=== PATIENT | female | born 1995 | race American Indian/Alaskan Native ===

== ENCOUNTER 2017-03-06 17:14 | Emergency (ER) | payer SELFPAY ==
[2017-03-06] MEDS ORDERED: NACL 0.9% 1000 ML 1,000 ML IV ONE ×2 (17:46→20:40)
[2017-03-06 18:05] LABS: Urine Drugs of Abuse Note Disclamer
[2017-03-06 18:20] LABS: Hematocrit 38.8 % (30.3-42.9); Hemoglobin 12.4 gm/dl (10.1-14.3); Mean Corpuscular HGB Conc 32 % (30-34); Mean Corpuscular Hemoglobin 29 pg (28-32); Mean Corpuscular Volume 92 fl (79-97); Platelet Count 186 K/mm3 (140-440); Red Blood Count 4.22 M/mm3 (3.65-5.03); Red Cell Distribution Width 13.5 % (13.2-15.2); White Blood Count 16.2 K/mm3 (4.5-11.0)
[2017-03-06] MEDS ORDERED: TYLENOL PO ONE (18:20)
--- NOTE | 2017-03-06 18:23 | Emergency Department Report ---
ED General Adult HPI - General Chief complaint: Nausea/Vomiting/Diarrhea Stated complaint: FEVER Time Seen by Provider: 03/06/17 18:09 Source: patient, EMS Mode of arrival: Stretcher Limitations: No Limitations - History of Present Illness Initial comments: 21-year-old female here for evaluation of multiple complaints. She's had nausea and vomiting for several days off intermittent low-grade temperature with body aches. She denies any headache she denies any stiff neck. She has had some intermittent joint pain but no swollen joints. No headache no stiff neck no rash. She is here for evaluation of generalized malaise with generalized weakness with body aches some intermittent nausea and vomiting. She denied any abdominal pain denied any diarrhea. Family states on the way over here they think she had a blackout spell that L think she did not have had seizure activity but they couldn't wake her up she is here for further evaluation. arrives a and o x 3 no acute distress, no head injury no stiff neck , nonfocal neuro exam, nsr w/o acute st changes on ekg, having int fever and n/ v w/ malaizse , no vag c/o. -: hour(s), days(s) Radiation: non-radiation Severity scale (0 -10): 0 Worsens with: none Associated Symptoms: fever/chills, malaise, nausea/vomiting, weakness. denies: confusion, chest pain, cough, diaphoresis, headaches, loss of appetite, rash, seizure, shortness of breath - Related Data Previous Rx's Medication Instructions Recorded Last Taken Type Cephalexin [Keflex] 500 mg PO Q8HR #30 cap 03/06/17 Unknown Rx Ondansetron [Zofran Odt] 4 mg PO Q8HR PRN #10 tab.rapdis 03/06/17 Unknown Rx Allergies Allergy/AdvReac Type Severity Reaction Status Date / Time Sulfa (Sulfonamide AdvReac Anaphylaxis Verified 03/06/17 18:14 Antibiotics) ED Review of Systems ROS: Stated complaint: FEVER Other details as noted in HPI Comment: All other systems reviewed and negative Constitutional: fever, malaise. denies: weakness Eyes: denies: eye pain ENT: denies: ear pain, throat pain Respiratory: denies: shortness of breath, SOB with exertion, SOB at rest, stridor, wheezing Cardiovascular: other (blackout spell after vomiting. Likely vasovagal no chest pain no headache no stiff neck no seizure activity). denies: chest pain, palpitations, dyspnea on exertion, orthopnea Gastrointestinal: nausea, vomiting. denies: diarrhea, constipation, hematemesis , melena, hematochezia Genitourinary: urgency. denies: discharge, abnormal menses, dyspareunia Skin: denies: rash Neurological: denies: headache, weakness, numbness, paresthesias, confusion, abnormal gait, vertigo Psychiatric: denies: homicidal thoughts, suicidal thoughts ED Past Medical Hx - Past Medical History Previous Medical History?: No - Surgical History Past Surgical History?: No - Social History Smoking Status: Never Smoker Substance Use Type: Alcohol - Medications Home Medications: Home Medications Medication Instructions Recorded Confirmed Last Taken Type Cephalexin [Keflex] 500 mg PO Q8HR #30 cap 03/06/17 Unknown Rx Ondansetron [Zofran Odt] 4 mg PO Q8HR PRN #10 tab.rapdis 03/06/17 Unknown Rx ED Physical Exam - General Limitations: No Limitations General appearance: alert, in no apparent distress - Head Head exam: Present: atraumatic, normocephalic - Eye Eye exam: Present: normal appearance, PERRL, EOMI - ENT ENT exam: Present: normal exam, normal orophraynx, mucous membranes dry - Neck Neck exam: Present: normal inspection. Absent: tenderness, meningismus, lymphadenopathy, thyromegaly - Respiratory Respiratory exam: Present: normal lung sounds bilaterally. Absent: respiratory distress, wheezes, rales, rhonchi, stridor, chest wall tenderness, accessory muscle use, decreased breath sounds, prolonged expiratory - Cardiovascular Cardiovascular Exam: Present: regular rate, normal rhythm, normal heart sounds. Absent: rubs, gallop - GI/Abdominal GI/Abdominal exam: Present: soft. Absent: distended, tenderness, guarding, rebound, rigid, mass, bruit, pulsatile mass - Extremities Exam Extremities exam: Present: normal inspection. Absent: tenderness, pedal edema, joint swelling, calf tenderness - Back Exam Back exam: Present: normal inspection. Absent: tenderness, muscle spasm, paraspinal tenderness, vertebral tenderness - Neurological Exam Neurological exam: Present: alert, oriented X3, CN II-XII intact, normal gait. Absent: motor sensory deficit ED Course Vital Signs 03/06/17 03/06/17 03/06/17 17:29 17:30 17:38 Temperature 100.2 F H Pulse Rate 126 H 111 H 116 H Respiratory 26 H 24 20 Rate Blood Pressure 108/69 108/69 Blood Pressure [Left] O2 Sat by Pulse 100 100 Oximetry 03/06/17 03/06/17 03/06/17 17:40 17:45 17:50 Temperature 100.2 F H Pulse Rate 121 H 116 H 112 H Respiratory 22 20 18 Rate Blood Pressure 108/71 108/71 Blood Pressure 108/69 [Left] O2 Sat by Pulse 100 100 100 Oximetry 03/06/17 03/06/17 03/06/17 18:00 18:10 18:20 Temperature Pulse Rate 117 H 117 H 116 H Respiratory 20 18 21 Rate Blood Pressure 110/61 110/61 110/61 Blood Pressure [Left] O2 Sat by Pulse 85 100 100 Oximetry 03/06/17 03/06/17 03/06/17 18:30 18:37 18:42 Temperature Pulse Rate 118 H 124 H Respiratory 23 16 38 H Rate Blood Pressure 129/73 129/73 Blood Pressure [Left] O2 Sat by Pulse 96 99 100 Oximetry 03/06/17 03/06/17 03/06/17 18:50 19:00 19:10 Temperature Pulse Rate 117 H 117 H 121 H Respiratory 15 23 21 Rate Blood Pressure 129/73 123/67 123/67 Blood Pressure [Left] O2 Sat by Pulse 100 99 99 Oximetry 03/06/17 03/06/17 03/06/17 19:20 19:30 19:40 Temperature 102.5 F H Pulse Rate 112 H 121 H Respiratory 24 26 H Rate Blood Pressure 123/67 105/58 Blood Pressure [Left] O2 Sat by Pulse 100 100 Oximetry - Reevaluation(s) Reevaluation #1: 03/06/17 22:16 Patient was given IV fluids she was given antipyretics. EKG and head CT were obtained given the fact that she had a possible syncopal episode CT head was process EKG showed a heart rate of 101-[address]-T changes and was a sinus rhythm ED Medical Decision Making - Lab Data Result diagrams: 03/06/17 18:10 03/06/17 18:10 - EKG Data -: EKG Interpreted by Me EKG shows normal: sinus rhythm, ST-T waves (no acute ischemic change) - EKG Data When compared to previous EKG there are: previous EKG unavailable - Radiology Data Radiology results: report reviewed - Medical Decision Making Results show pyelonephritis she is WBC high power field elevated. Also has elevated WBC. IV fluids and antibiotics given. Tolerating by mouth. No acute abd at this time. Influenza AB-. Repeat vital signs are stable patient still for outpatient follow-up she does not appear septic she is nontoxic she is tolerating by mouth with no acute abdomen she was discharged in stable condition with antibiotics to see her regular doctor to continue fluids. She' ll be placed on antibiotics Critical care attestation.: If time is entered above; I have spent that time in minutes in the direct care of this critically ill patient, excluding procedure time. ED Disposition Clinical Impression: Pyelonephritis Disposition: DC-01 TO HOME OR SELFCARE Is pt being admited?: No Condition: Stable Instructions: Acute Pyelonephritis (ED) Additional Instructions: Return immediately if new alarming symptoms such as elevated fever nausea vomiting or other problems see her regular doctor in 2 days take the medicines as directed Prescriptions: Cephalexin [Keflex] 500 mg PO Q8HR #30 cap Ondansetron [Zofran Odt] 4 mg PO Q8HR PRN #10 tab.rapdis PRN Reason: Nausea And Vomiting Referrals: MEJIA NOLASCO MD [Primary Care Provider] - 3-5 Days Time of Disposition: 22:23
[2017-03-06 18:25] LABS: Bacteria,Urine 2+ /HPF (Negative); Bilirubin,Urine NEG (Negative); Blood,Urine MOD (Negative); Ketones,Urine TR mg/dL (Negative); Leukocyte Esterase,Urine TR (Negative); Mucus,Urine FEW /HPF; Nitrite,Urine NEG (Negative)
[2017-03-06 18:36] LABS: Anion Gap 19 mmol/L; BUN/Creatinine Ratio 14; Blood Urea Nitrogen 10 mg/dL (7-17); Calcium 8.9 mg/dL (8.4-10.2); Carbon Dioxide 24 mmol/L (22-30); Chloride 98.2 mmol/L (98-107); Glucose 98 mg/dL (65-100); Potassium 3.8 mmol/L (3.6-5.0); Sodium 137 mmol/L (137-145)
--- NOTE | 2017-03-06 19:07 | Cat Scan Report ---
FINAL REPORT EXAM: CT HEAD/BRAIN WO CON HISTORY: syncope TECHNIQUE: Axial noncontrast CT images of the brain. Total exam DLP 1081.57 mGy-cm Comparison: None FINDINGS: There is normal denny-white differentiation without midline shift or mass effect. There are no acute extra-axial fluid collections or intraparenchymal blood products. Ventricles and cisterns have normal size and configuration. Mildly dysconjugate gaze. Minimal ethmoid air cell mucosal thickening. No displaced calvarial fracture. Mild temporalis muscular hypertrophy suggesting bruxism. IMPRESSION: No acute transcortical infarct, bleed, or mass identified. 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
[2017-03-06 19:17] LABS: Basophils % (Manual) 0 % (0.0-1.8); Blastocytes % (Manual) 0 %; Eosinophils % (Manual) 0 % (0.0-4.3)
[2017-03-06 19:18] LABS: Diff Status Complete; Ovalocytes Few
[2017-03-06] MEDS ORDERED: MOTRIN PO ONE (19:53)
[2017-03-06] MEDS ORDERED: ROCEPHIN IV ONE (20:37)
[2017-03-06] MEDS ORDERED: XYLOCAINE 1% MPF 5 mL INFILTRATI ONE (20:37)
[2017-03-06] MEDS ORDERED: cefTRIAXone 1 GM in NACL 0.9% 20 ML IV ONE (20:45)
[2017-03-06 22:39] VITALS: BP 98/51
== END 2017-03-06 22:58 | disposition home or self-care (01) ==
LOC: ED 17:14
DX: N12 Tubulo-interstitial nephritis, not specified as acute or chronic (principal); Z88.2 Allergy status to sulfonamides; Z79.899 Other long term (current) drug therapy
CPT/HCPCS: 36415; 70450; 80048; 80307; 81001; 82962; 84703; 85007; 85025; 87076; 87086; 87186; 87400; 93005; 93010; 96361; 96365; 96376; 99285; J0696; J7030